=== PATIENT | female | born 1955 | race Two or more races ===

== ENCOUNTER 2016-09-07 22:21 | Emergency (ER) | payer MEDICARE, MEDICAID ==
[~2016-09-07] VITALS: Ht 165.1 cm; Wt 65.8 kg
[~2016-09-07 22:21] MED LIST: ABILIFY2 MG ORAL; ACIDOPHILUS PROB1 MG PO; AMBIEN10 M1 ORAL; CENTRUM SILVER1 EAC6 PO; CREON DR 24,001 EACH PO; CYMBALTA60 MG ORAL; DOCUSATE SODIU250 MG ORAL; FISH OIL300 M1 PO; GABAPENTIN300 MG ORAL; GAVISCON ES TA1 EACH PO; LEVETIRACE100 MG/1 M GT; LEVETIRACETAM500 MG ORAL; MILK THISTLE175 M2 PO; NEXIUM40 MG ORAL; POLYETHYLENE G500 G2 MC; PROBIOTIC1 EAC5 PO; REMERON15 MG ORAL; VASCEPA1 GM PO; VITAMIN C500 M1 ORAL; VITAMIN D32000 UNI3 PO; [UNRECOGNIZED DRUG - OTHER] GT
[2016-09-07] MEDS ORDERED: Ketorolac 30mg Inj IV ONE (22:45)
[2016-09-07] MEDS ORDERED: ZOFRAN8 MG ORAL (23:07)
[2016-09-07] MEDS ORDERED: LORAZEPAM1 MG ORAL (23:09)
[2016-09-07] MEDS ORDERED: MIRTAZAPINE15 M3 ORAL (23:09)
[2016-09-07] MEDS ORDERED: CREON DR 36,001 EACH PO (23:10)
[2016-09-07] MEDS ORDERED: VASCEPA1 GM PO (23:10)
[2016-09-07] MEDS ORDERED: OMEPRAZOLE40 M1 ORAL (23:10)
[2016-09-07] MEDS ORDERED: CYANOCOBAL1000 MCG/M IM (23:11)
[2016-09-07] MEDS ORDERED: ACIDOPHILUS PROB1 MG PO (23:12)
[2016-09-07] MEDS ORDERED: GAVISCON EXTRA PO (23:12)
[2016-09-07] MEDS ORDERED: NEXIUM40 MG ORAL (23:12)
[2016-09-07] MEDS ORDERED: VESICARE5 MG ORAL (23:13)
[2016-09-07] MEDS ORDERED: ZINC50 MG ORAL (23:13)
[2016-09-07] MEDS ORDERED: CHLORPROMAZINE10 MG PO (23:15)
[2016-09-07] MEDS ORDERED: MAGNESIUM250 M2 PO (23:15)
[2016-09-07] MEDS ORDERED: MOVE FREE JOIN1 EACH PO (23:15)
[2016-09-07] MEDS ORDERED: HYDROXYZINE HCL10 M1 PO (23:16)
[2016-09-07] MEDS ORDERED: VALACYCLOVIR500 MG ORAL (23:16)
[2016-09-07] MEDS ORDERED: ZIRGAN5 GM LEFT EYE (23:17)
[2016-09-07 23:20] LABS: EOSINOPHILS % (AUTO) 0.7 % (0.0-3.0); LYMPHOCYTES % (AUTO) 21.8 % (20.0-45.0); MEAN CORPUSCULAR HEMOGLOBIN 32.4 PG (27.0-31.0); MEAN CORPUSCULAR HGB CONC 34.8 G/DL (32.0-36.0); MEAN CORPUSCULAR VOLUME 93 FL (80-99); MEAN PLATELET VOLUME 5.6 FL (6.5-10.1); MONOCYTES % (AUTO) 10.9 % (1.0-10.0); NEUTROPHILS % (AUTO) 65.7 % (45.0-75.0); PLATELET COUNT 187 K/UL (150-450); RED CELL DISTRIBUTION WIDTH 11.2 % (11.6-14.8); WHITE BLOOD COUNT 6.3 K/UL (4.8-10.8)
[2016-09-07 23:26] VITALS: BP 112/69
[2016-09-07 23:35] LABS: ALANINE AMINOTRANSFERASE 14 U/L (3-33); ALBUMIN/GLOBULIN RATIO 1.6 (1.0-2.7); ANION GAP 15 (5-15); ASPARTATE AMINO TRANSFERASE 14 U/L (5-40); CALCIUM 9.2 mg/dL (8.6-10.2); CARBON DIOXIDE 27 mEQ/L (20-30); CHLORIDE 98 mEQ/L (98-107); CREATININE 0.9 mg/dL (0.5-0.9); GLOMERULAR FILTRATION RATE > 60 mL/min (>60); HEMOLYSIS 4; POTASSIUM 3.6 mEQ/L (3.4-4.9); SODIUM 140 mEQ/L (135-145); TOTAL PROTEIN 6.7 g/dL (6.6-8.7); TROPONIN I < 0.30 ng/mL (<=0.30)
[2016-09-07 23:46] LABS: CKMB 2.5 ng/mL (< 3.8)
[2016-09-08] MEDS ORDERED: NEURONTIN400 MG ORAL (01:14)
[2016-09-08 01:25] VITALS: BP 115/70
--- NOTE | 2016-09-08 05:36 | Emergency Room Report ---
History of Present Illness General Chief Complaint: Chest Pain Source: Patient, EMS Present Illness HPI Patient is a 61-year-old female presented after increased facial rash as well as some chest pain. Patient reported having gradual onset of symptoms. Patient reports having prior history of brain surgery. Patient said that she had recently been diagnosed with shingles and started on prescription eyedrops for possible ocular shingles. The patient stated that she had been having increased itching to the left side of her face. She stated that she was having moderate pain. She reported having some palpitations. She denied any fever. Allergies: Coded Allergies: ACETAMINOPHEN (Verified Adverse Reaction, Severe, Nausea/vomiting, 07/31/15 ) HYDROCODONE (Verified Adverse Reaction, Severe, Nausea/vomiting, 07/31/15) Patient History Past Medical History: see triage record Reviewed Nursing Documentation: PMH: Agreed, PSxH: Agreed Nursing Documentation-PMH Past Medical History: No History, Except For Hx Cardiac Problems: Yes Hx Hypertension: Yes Hx Cancer: Yes - Brain Tumor Hx Gastrointestinal Problems: Yes - abdominal pain Hx Neurological Problems: Yes Hx Seizures: Yes Hx Dizziness: Yes Hx Neurologic Surgery: Yes - 05/2014 - brain tumor removal Hx Brain Shunt: Yes - 01/2015 Review of Systems All Other Systems: negative except mentioned in HPI Physical Exam Vital Signs Date Time Temp Pulse Resp B/P Pulse Ox O2 Delivery O2 Flow Rate FiO2 09/07/16 22:21 98.8 92 16 113/80 99 Room Air Sp02 EP Interpretation: reviewed, normal General Appearance: normal inspection, well appearing, no apparent distress, alert, GCS 15, non-toxic Head: atraumatic ENT: normal ENT inspection, hearing grossly normal, normal voice Neck: normal inspection, full range of motion, supple, no bony tend Respiratory: normal inspection, lungs clear, normal breath sounds, no respiratory distress, no retraction, no wheezing Cardiovascular #1: regular rate, rhythm, no edema Gastrointestinal: normal inspection, normal bowel sounds, non tender, soft, no guarding, no hernia Genitourinary: no CVA tenderness Musculoskeletal: normal inspection, back normal, normal range of motion Neurologic: normal inspection, alert, responsive, speech normal Psychiatric: normal inspection, judgement/insight normal, mood/affect normal Skin: other - left facial vesicles on erythematous base. Medical Decision Making Diagnostic Impression: Primary Impression: Shingles ER Course Patient presented for chest pain.Differential diagnosis included but was not limited to acute coronary syndrome, pulmonary embolism, pneumonia, aortic dissection, shingles, pneumothorax, aortic dissection, esophageal rupture, pericarditis. Because of complexity of patient's case laboratory testing and imaging studies were ordered. Patient was noted to have EKG interpreted by me showed sinus tachycardia with rate of [address] or T wave changes.Patient was given IV fluids. The patient was given pain medications. laboratory testing was unremarkable. The patient was noted to have prescriptions for multiple medications for shingles already. Patient was given prescriptions for Neurontin. The patient is advised to follow up with primary care doctor in 1-2 days. Patient was advised followup with ophthalmology for reevaluation of eye. Patient is advised to return if any worsening condition or if any changes in status that are concerning. Labs Test 09/07/16 22:30 White Blood Count 6.3 K/UL (4.8-10.8) Red Blood Count 3.80 M/UL (4.20-5.40) Hemoglobin 12.3 G/DL (12.0-16.0) Hematocrit 35.3 % (37.0-47.0) Mean Corpuscular Volume 93 FL (80-99) Mean Corpuscular Hemoglobin 32.4 PG (27.0-31.0) Mean Corpuscular Hemoglobin Concent 34.8 G/DL (32.0-36.0) Red Cell Distribution Width 11.2 % (11.6-14.8) Platelet Count 187 K/UL (150-450) Mean Platelet Volume 5.6 FL (6.5-10.1) Neutrophils (%) (Auto) 65.7 % (45.0-75.0) Lymphocytes (%) (Auto) 21.8 % (20.0-45.0) Monocytes (%) (Auto) 10.9 % (1.0-10.0) Eosinophils (%) (Auto) 0.7 % (0.0-3.0) Basophils (%) (Auto) 1.0 % (0.0-2.0) Sodium Level 140 mEQ/L (135-145) Potassium Level 3.6 mEQ/L (3.4-4.9) Chloride Level 98 mEQ/L (98-107) Carbon Dioxide Level 27 mEQ/L (20-30) Anion Gap 15 (5-15) Blood Urea Nitrogen 14 mg/dL (7-23) Creatinine 0.9 mg/dL (0.5-0.9) Estimat Glomerular Filtration Rate > 60 mL/min (>60) Glucose Level 88 mg/dL (74-106) Calcium Level 9.2 mg/dL (8.6-10.2) Total Bilirubin < 0.2 mg/dL (0.0-1.2) Aspartate Amino Transf (AST/SGOT) 14 U/L (5-40) Alanine Aminotransferase (ALT/SGPT) 14 U/L (3-33) Alkaline Phosphatase 110 U/L (35-104) Total Creatine Kinase 132 U/L (26-140) Creatine Kinase MB 2.5 ng/mL (< 3.8) Creatine Kinase MB Relative Index 1.8 Troponin I < 0.30 ng/mL (<=0.30) Total Protein 6.7 g/dL (6.6-8.7) Albumin 4.2 g/dL (3.5-5.2) Globulin 2.5 g/dL Albumin/Globulin Ratio 1.6 (1.0-2.7) Last Vital Signs Date Time Temp Pulse Resp B/P Pulse Ox O2 Delivery O2 Flow Rate FiO2 09/08/16 01:25 98.4 77 15 115/70 99 Room Air Status: improved Disposition: HOME, SELF-CARE Condition: Stable Scripts Gabapentin* (NEURONTIN*) 400 Mg Capsule 400 MG ORAL THREE TIMES A DAY, #15 CAP 0 Refills Prov: Osiel He 09/08/16 Patient Instructions: Nonspecific Chest Pain, Shingles, [id number] Osiel He Sep 08, 2016 05:36
--- NOTE | 2016-09-08 11:08 | Diagnostic Imaging Report ---
Indication: SOB Technique: One view of the chest Comparison: 10/03/2014 Findings: Ventriculoperitoneal shunt tubing now projects over the left chest. The lungs and pleural spaces are clear. The heart is upper limits normal in size. Impression: No acute process New ventriculoperitoneal shunt tubing
--- NOTE | 2016-09-09 08:15 | Cardiology Report ---
APPROVED REPORT EKG Measurement Heart [id number] Sinus tachycardia Moderate voltage criteria for LVH, may be normal variant Possible Lateral infarct, age undetermined Abnormal ECG
== END 2016-09-08 01:25 | disposition home or self-care (01) ==
LOC: EDBD 22:21 → EMR 23:00
DX: B02.9 Zoster without complications (principal); R07.9 Chest pain, unspecified; I10 Essential (primary) hypertension; Z86.011 Personal history of benign neoplasm of the brain
CPT/HCPCS: 36415; 71010; 80053; 82550; 82553; 84484; 85025; 93005; 96360; 96374; 99284; J1885

== ENCOUNTER 2018-02-23 15:33 | Emergency (ER) | payer MEDICAID, MEDICARE ==
[~2018-02-23] VITALS: Ht 160 cm; Wt 68.9 kg
[~2018-02-23 15:33] MED LIST changes: +CHLORPROMAZINE10 MG PO; +CREON DR 36,001 EACH PO; +CYANOCOBAL1000 MCG/M IM; +FERROUS SULFAT325 M2 ORAL; +GAVISCON EXTRA PO; +HYDROXYZINE HCL10 M1 PO; +LORAZEPAM1 MG ORAL; +MAGNESIUM250 M2 PO; +MIRTAZAPINE15 M3 ORAL; +MOVE FREE JOIN1 EACH PO; +MYRBETRIQ25 MG PO; +NEURONTIN400 MG ORAL; +OMEPRAZOLE40 M1 ORAL; +VALACYCLOVIR500 MG ORAL; +VESICARE5 MG ORAL; +ZINC50 MG ORAL; +ZIRGAN5 GM LEFT EYE; +ZOFRAN8 MG ORAL
[2018-02-23 15:46] VITALS: BP 113/82
[2018-02-23] MEDS ORDERED: BACITRACIN15 GM TOPIC (16:05)
[2018-02-23] MEDS ORDERED: DIPHENHYDRAMINE25 M1 ORAL (16:05)
[2018-02-23] MEDS ORDERED: CEPHALEXIN500 MG ORAL (16:05)
[2018-02-23 16:12] VITALS: BP 113/82
--- NOTE | 2018-02-23 17:47 | Emergency Room Report ---
History of Present Illness General Chief Complaint: Skin Rash/Abscess Source: Patient Present Illness HPI 62-year-old female presents ED for evaluation of insect bites to her leg. States she was bitten by mosquitoes 2 days ago on both legs. States there are multiple red bumps which are itchy. Denies any pain. Denies any fevers or chills. Denies discharge. No other aggravating relieving factors. Denies any other associated symptoms Allergies: Coded Allergies: ACETAMINOPHEN (Verified Adverse Reaction, Severe, Nausea/vomiting, 07/31/15 ) HYDROCODONE (Verified Adverse Reaction, Severe, Nausea/vomiting, 07/31/15) Patient History Past Medical History: HTN, seizures, other - brain cancer Past Surgical History: other - brain surgery Pertinent Family History: none Social History: Denies: smoking, alcohol use, drug use Last Menstrual Period: na Now: No Immunizations: UTD Reviewed Nursing Documentation: PMH: Agreed; PSxH: Agreed Nursing Documentation-PMH Past Medical History: No History, Except For Hx Cardiac Problems: Yes Hx Hypertension: Yes Hx Cancer: Yes - Brain CA Hx Gastrointestinal Problems: Yes - abdominal pain Hx Neurological Problems: Yes Hx Seizures: Yes Hx Dizziness: Yes Hx Neurologic Surgery: Yes - 05/2014 - brain tumor removal Hx Brain Shunt: Yes - 01/2015 Review of Systems All Other Systems: negative except mentioned in HPI Physical Exam Vital Signs Date Time Temp Pulse Resp B/P (MAP) Pulse Ox O2 Delivery O2 Flow Rate FiO2 02/23/18 15:46 97.9 81 18 113/82 98 Room Air 97.9 Sp02 EP Interpretation: reviewed, normal General Appearance: no apparent distress, alert, GCS 15, non-toxic Head: normocephalic Eyes: bilateral eye normal inspection, bilateral eye PERRL ENT: normal ENT inspection Neck: normal inspection Respiratory: normal inspection Cardiovascular #1: normal inspection Gastrointestinal: normal inspection Rectal: deferred Genitourinary: no CVA tenderness Musculoskeletal: back normal, gait/station normal, normal range of motion, non- tender Neurologic: alert, oriented x3, responsive, motor strength/tone normal, sensory intact, speech normal Psychiatric: normal inspection Skin: other - multiple erythematous bumps to bilateral LEs. no fluctuance or discharge. nonerythematous base Lymphatic: normal inspection Medical Decision Making Diagnostic Impression: Primary Impression: Insect bites Qualified Codes: W57.XXXA - Bitten or stung by nonvenomous insect and other nonvenomous arthropods, initial encounter ER Course Hospital Course 62-year-old female presents to ED with bumps to lower extremities Differential diagnoses include: Cellulitis, dermatitis, insect bite, abscess Clinical course Patient placed on stretcher. After initial history, physical exam reveals an elderly female in no acute distress. on exam there are multiple erythematous bumps to lower extremities. nonerythematous base. no fluctuance or discharge Discussed findings with patient. We'll discharge on Keflex, Benadryl, bacitracin. Warm compresses. Close follow-up with PMD Diagnosis - insect bites stable and discharged to home with prescription for bacitracin, Benadryl, Keflex. Instructed to followup with PMD. Instructed return to ED if symptoms recur or worsen Last Vital Signs Date Time Temp Pulse Resp B/P (MAP) Pulse Ox O2 Delivery O2 Flow Rate FiO2 02/23/18 16:12 98.0 81 18 113/82 99 Room Air Status: improved Disposition: HOME, SELF-CARE Condition: Stable Scripts Bacitracin (Bacitracin) 28.4 Gm Oint...g. 1 APPLIC TOPIC THREE TIMES A DAY, #28.4 GM Prov: Ken Davis MD 02/23/18 Diphenhydramine Hcl* (DIPHENHYDRAMINE HCL*) 25 Mg Capsule 25 MG ORAL Q6H PRN for Itching, #30 CAP 0 Refills Prov: Ken Davis MD 02/23/18 Cephalexin* (KEFLEX*) 500 Mg Capsule 500 MG ORAL EVERY 6 HOURS for 7 Days, CAP Prov: Ken Davis MD 02/23/18 Referrals: NON PHYSICIAN (PCP) Patient Instructions: Insect Bite, [id number] Ken Davis MD Feb 23, 2018 17:47
== END 2018-02-23 16:20 | disposition home or self-care (01) ==
LOC: EMR 16:13
DX: S80.862A Insect bite (nonvenomous), left lower leg, initial encounter (principal); S80.861A Insect bite (nonvenomous), right lower leg, initial encounter; W57.XXXA Bitten or stung by nonvenomous insect and other nonvenomous arthropods, initial encounter; Y92.9 Unspecified place or not applicable; I10 Essential (primary) hypertension; Z85.841 Personal history of malignant neoplasm of brain; Z88.6 Allergy status to analgesic agent; Z88.5 Allergy status to narcotic agent
CPT/HCPCS: 99283

== ENCOUNTER → 2018-10-07 | Emergency (ER) | payer MEDICARE ==
[~2018-10-07] VITALS: Ht 160 cm; Wt 68.9 kg
[~2018-10-07] MED LIST changes: +BACITRACIN15 GM TOPIC; +BENADRYL25 MG ORAL; +CEPHALEXIN500 MG ORAL; +DIPHENHYDRAMINE25 M1 ORAL
[2018-10-07 15:10] VITALS: BP 124/82
--- NOTE | 2018-10-07 15:35 | Emergency Room Report ---
History of Present Illness General Chief Complaint: Skin Rash/Abscess Source: Patient, Medical Record Present Illness HPI 63-year-old female with history of brain tumor currently under treatment here complaining of a pruritic rash on both arms and chest x1 day. She reports that she started using Bactroban ointment on her nose as prescribed by her primary care provider due to increased nosebleed. Also started taking niacin as it was advised by her sister to take for better immune system. Is reporting rash being pruritic and nonpainful at the time of visit there is no rash prominent. Anaphylaxis, difficulty breathing, difficulty swallowing. Also complains of sore throat however reports that her primary care provider to get throat culture yesterday and pending results to decide whether starting antibiotics or not. No chest pain, S OB, palpitation, abdominal pain, nausea vomiting and all other associated symptoms no recent travel, camping, contact with allergens. Allergies: Coded Allergies: ACETAMINOPHEN (Verified Adverse Reaction, Severe, Nausea/vomiting, 07/31/15 ) HYDROCODONE (Verified Adverse Reaction, Severe, Nausea/vomiting, 07/31/15) Patient History Past Medical History: see triage record Past Surgical History: unable to obtain Last Menstrual Period: N/A Now: No Immunizations: UTD Reviewed Nursing Documentation: PMH: Agreed; PSxH: Agreed Nursing Documentation-PMH Hx Cardiac Problems: Yes Hx Hypertension: Yes Hx Cancer: Yes - Brain CA Hx Gastrointestinal Problems: Yes - abdominal pain Hx Neurological Problems: Yes Hx Seizures: Yes Hx Dizziness: Yes Hx Neurologic Surgery: Yes - 05/2014 - brain tumor removal Hx Brain Shunt: Yes - 01/2015 Review of Systems All Other Systems: negative except mentioned in HPI Physical Exam Vital Signs Date Time Temp Pulse Resp B/P (MAP) Pulse Ox O2 Delivery O2 Flow Rate FiO2 10/07/18 15:10 98.1 74 18 98 Room Air Sp02 EP Interpretation: reviewed General Appearance: normal inspection, alert, GCS 15 Eyes: bilateral eye normal inspection, bilateral eye PERRL ENT: normal ENT inspection, hearing grossly normal Neck: normal inspection, full range of motion, supple, thyroid normal, no meningismus Respiratory: normal inspection, chest non-tender, lungs clear, no wheezing Cardiovascular #1: normal inspection, regular rate, rhythm, no edema, no gallop , no murmur, normal capillary refill Gastrointestinal: normal inspection, non tender, soft Rectal: deferred Genitourinary: no CVA tenderness Musculoskeletal: normal inspection, back normal Neurologic: normal inspection, alert, oriented x3 Psychiatric: normal inspection, judgement/insight normal Skin: rash - macular arms and chest no anaphylaxis no cellulitis Lymphatic: normal inspection, no adenopathy Medical Decision Making JESSICA Attestation All my diagnosis and treatment plans were reviewed ad discussed with my supervising physician Dr. Monaco Diagnostic Impression: Primary Impression: Allergic drug rash ER Course 63-year-old female with history of brain tumor currently under treatment here complaining of a pruritic rash on both arms and chest x1 day. She reports that she started using Bactroban ointment on her nose as prescribed by her primary care provider due to increased nosebleed. Also started taking niacin as it was advised by her sister to take for better immune system. Is reporting rash being pruritic and nonpainful at the time of visit there is no rash prominent. Anaphylaxis, difficulty breathing, difficulty swallowing. Also complains of sore throat however reports that her primary care provider to get throat culture yesterday and pending results to decide whether starting antibiotics or not. No chest pain, S OB, palpitation, abdominal pain, nausea vomiting and all other associated symptoms no recent travel, camping, contact with allergens. Ddx considered but are not limited to: contact dermatitis, drug allergic rash, cellulitis, Vital signs: are WNL, pt. is afebrile H&PE are most consistent with: mild allergic rash due to medication( niacin) ORDERS: benadryl ED INTERVENTIONS: None required at this time. DISCHARGE: At this time pt. is stable for d/c to home. Will provide printed patient care instructions, and any necessary prescriptions. Care plan and follow up instructions have been discussed with the patient prior to discharge. Taking niacin as this is a cause of your rash, if anaphylaxis return to the emergency room, follow-up with a primary care provider regarding your throat culture Last Vital Signs Date Time Temp Pulse Resp B/P (MAP) Pulse Ox O2 Delivery O2 Flow Rate FiO2 10/07/18 15:10 98.1 74 18 98 Room Air Disposition: HOME, SELF-CARE Condition: Stable Scripts Diphenhydramine Hcl* (BENADRYL*) 25 Mg Capsule 25 MG ORAL Q8HR PRN for Itching, #30 CAP Prov: Dulce Mancilla 10/07/18 Patient Instructions: Allergies, [id number] Additional Instructions: Stop taking niacin as this is a cause of your rash if anaphylaxis, shortness of breath return to the emergency room. With your primary care provider. avoid Taking medication without the approval of your primary care provider Dulce Mancilla October 07, 2018 15:35
[2018-10-07 15:45] VITALS: BP 132/70
--- NOTE | 2018-10-07 15:45 | NUR ---
ER DISCHARGE NOTE: Pt was seen due to rashes. Patient is cleared to be discharged per ERMD, pt is aox4, on room air, with stable vital signs. pt was given dc and prescription instructions, pt was able to verbalize understanding, pt id band removed. pt is able to ambulate with steady gait. pt took all belongings.
== END | disposition home or self-care (01) ==
LOC: EMR 15:47
DX: R21 Rash and other nonspecific skin eruption (principal); T78.40XA Allergy, unspecified, initial encounter; X58.XXXA Exposure to other specified factors, initial encounter; Z88.6 Allergy status to analgesic agent; I10 Essential (primary) hypertension; Z85.841 Personal history of malignant neoplasm of brain
CPT/HCPCS: 99282